=== PATIENT | male | born 1960 | race Caucasian/White ===

== ENCOUNTER 2018-01-27 00:12 | Emergency (ER) | payer MEDICAID, SELFPAY ==
[~2018-01-27] VITALS: Ht 175.3 cm; Wt 87.0 kg
[2018-01-27] MEDS ORDERED: AZITHROMYCIN 500 MG TABLET PO ONE (02:30)
[2018-01-27] MEDS ORDERED: CEFTRIAXONE SODIUM 250 MG/VIAL IM ONE (02:30)
[2018-01-27] MEDS ORDERED: ACETAMINOPHEN 325MG TABLET PO ONE (03:00)
[2018-01-27 03:54] LABS: CLARITY URINE CLEAR (CLEAR); COLOR URINE YELLOW (YELLOW); KETONES URINE NEGATIVE (NEGATIVE); LEUKOCYTE ESTERASE URINE 3+ (NEGATIVE); NITRITE URINE NEGATIVE (NEGATIVE); OCCULT BLOOD URINE TRACE (NEGATIVE); PROTEIN URINE NEGATIVE (NEGATIVE); UROBILINOGEN URINE 0.2 E.U./dL (0.2-1.0)
[2018-01-27 06:53] VITALS: BP 95/60
== END 2018-01-27 06:54 | disposition home or self-care (01) ==
LOC: ER 00:12
DX: N41.9 Inflammatory disease of prostate, unspecified (principal)
CPT/HCPCS: 76870; 81003; 87077; 87086; 87186; 93976; 96372; 99285; J0696